=== PATIENT | female | born 1975 | race Caucasian/White ===

== ENCOUNTER 2019-02-28 17:36 | Emergency (ER) | payer MEDICAID ==
[2019-02-28] MEDS ORDERED: KETOROLAC 30 MG INJ IM (19:53)
[2019-02-28 20:12] LABS: ADD MAN DIFF? NO
[2019-02-28 20:13] LABS: BASOPHIL # 0.1 10^3/ul (0.0-0.1); BASOPHILS % 0.3 % (0.0-2.0); EOSINOPHILS % 0.1 % (0.0-7.0); HEMATOCRIT 43.2 % (37.0-47.0); HEMOGLOBIN 15.2 g/dl (12.0-16.0); LYMPHOCYTES # 1.6 10^3/ul (0.8-2.9); LYMPHOCYTES % 8.2 % (15.0-51.0); MEAN CORPUSCULAR HEMOGLOBIN 31.3 pg (29.0-33.0); MEAN CORPUSCULAR HGB CONC 35.2 g/dl (32.0-37.0); MEAN CORPUSCULAR VOLUME 88.9 fl (82.0-101.0); MEAN PLATELET VOLUME 10.5 fl (7.4-10.4); MONOCYTE # 0.8 10^3/ul (0.3-0.9); MONOCYTES % 4.2 % (0.0-11.0); NEUTROPHIL # 17.3 10^3/ul (1.6-7.5); NEUTROPHILS % 86.7 % (39.0-77.0); PLATELET COUNT 268 10^3/UL (140-415); RED BLOOD COUNT 4.86 10^6/ul (4.20-5.40); RED CELL DISTRIBUTION WIDTH 12.4 % (11.5-14.5)
[2019-02-28 20:33] LABS: ALANINE AMINOTRANSFERASE 40 IU/L (13-69); ALBUMIN 4.4 g/dl (3.3-4.9); ALBUMIN/GLOBULIN RATIO 1.29; ALKALINE PHOSPHATASE 100 IU/L (42-121); ANION GAP 12 (5-13); ASPARTATE AMINO TRANSFERASE 30 IU/L (15-46); BILIRUBIN,INDIRECT 0.7 mg/dl (0-1.1); BILIRUBIN,TOTAL 0.7 mg/dl (0.2-1.3); BLOOD UREA NITROGEN 7 mg/dl (7-20); CALCIUM 9.7 mg/dl (8.4-10.2); CARBON DIOXIDE 28 mmol/L (21-31); CHLORIDE 99 mmol/L (97-110); CREATININE 0.51 mg/dl (0.44-1.00); Estimated GFR > 60 mL/min (>60); GLUCOSE 140 mg/dl (70-220); POTASSIUM 3.4 mmol/L (3.5-5.1); SODIUM 139 mmol/L (135-144); TOTAL PROTEIN 7.8 g/dl (6.1-8.1)
[2019-02-28] MEDS: KETOROLAC 30 MG INJ IM (21:04)
[2019-02-28 21:10] LABS: ADD UMIC YES; UR ASCORBIC ACID NEGATIVE (NEGATIVE); UR BILIRUBIN (Dip) NEGATIVE (NEGATIVE); UR BLOOD (Dip) 2+ mg/dL (NEGATIVE); UR CLARITY CLEAR (CLEAR); UR COLOR STRAW (YELLOW); UR GLUCOSE (Dip) NEGATIVE (NEGATIVE); UR KETONES (Dip) NEGATIVE (NEGATIVE); UR LEUKOCYTE ESTERASE (Dip) NEGATIVE Leu/ul (NEGATIVE); UR NITRITE (Dip) NEGATIVE (NEGATIVE); UR RBC 5 /HPF (0-5); UR SPECIFIC GRAVITY (Dip) 1.005 (1.003-1.030); UR TOTAL PROTEIN (Dip) NEGATIVE (NEGATIVE); UR UROBILINOGEN (Dip) NEGATIVE (NEGATIVE); UR WBC 0 /HPF (0-5)
[2019-02-28] MEDS: ACETAMINOPHEN 325 MG TAB PO (21:45)
[2019-02-28] MEDS: IBUPROFEN 600 MG TAB PO (21:46)
[2019-03-01 14:58] LABS: MONOTEST Negative (NEG)
== END 2019-02-28 22:55 | disposition home or self-care (01) ==
LOC: FTE 17:36
DX: R50.9 Fever, unspecified (principal); R10.13 Epigastric pain; R00.0 Tachycardia, unspecified
CPT/HCPCS: 71046; 80053; 81001; 81025; 85025; 86308; 87400; 93005; 96372; 99285-25

== ENCOUNTER 2019-03-01 06:34 | Emergency (ER) | payer MEDICAID ==
[2019-03-01] MEDS: KETOROLAC 30 MG INJ IM (08:50)
[2019-03-01] MEDS: ONDANSETRON (ODT) 4 MG TAB ODT (08:50)
== END 2019-03-01 09:31 | disposition home or self-care (01) ==
LOC: FTE 06:34
DX: J06.9 Acute upper respiratory infection, unspecified (principal); G44.209 Tension-type headache, unspecified, not intractable
CPT/HCPCS: 81025; 96372; 99284-25